=== PATIENT | male | born 2000 | race Caucasian/White ===

== ENCOUNTER 2020-07-10 08:56 | Emergency (ER) | payer OTHER ==
[~2020-07-10] VITALS: Ht 165.1 cm; Wt 53.6 kg
[2020-07-10 09:05] VITALS: BP 119/67
[2020-07-10 09:44] LABS: BASOPHILS % (AUTO) 0.8 % (0.0-2.0); EOSINOPHILS % (AUTO) 1.4 % (1.0-6.0); HEMATOCRIT 44.1 % (41-53); HEMOGLOBIN 15.2 g/dL (13.5-17.5); LYMPHOCYTES # (AUTO) 1.2 K/uL (1.0-4.8); MEAN CORPUSCULAR HEMOGLOBIN 28.9 pg (26.0-34.0); MEAN CORPUSCULAR HGB CONC 34.5 G/dL (31.0-37.0); MEAN CORPUSCULAR VOLUME 84 fL (80-100); MONOCYTES # (AUTO) 0.5 K/uL (0.1-1.0); MONOCYTES % (AUTO) 8.3 % (2.0-9.0); NEUTROPHILS # (AUTO) 3.8 K/uL (1.8-7.7); NEUTROPHILS % (AUTO) 68.5 % (40.0-70.0); PLATELET COUNT (AUTO) 317 K/uL (150-450); RED BLOOD CELL COUNT(AUTO) 5.27 MIL/uL (4.50-5.90); RED CELL DISTRIBUTION WIDTH 15.5 % (11.5-14.5)
[2020-07-10 09:51] LABS: ANION GAP 7 mmol/L (8-16); CALCIUM, TOTAL 9.3 mg/dL (8.8-10.5); CARBON DIOXIDE 29 mmol/L (22-29); CHLORIDE 101 mmol/L (98-107); CREATININE 0.91 mg/dL (0.60-1.30); GLOMERULAR FILTR. RATE CALC > 60 mL/min (>60); GLUCOSE,RANDOM 117 mg/dL (70-110); POTASSIUM 3.5 mmol/L (3.5-5.1); SODIUM SERUM 137 mmol/L (136-145); UREA NITROGEN, BLOOD 13 mg/dL (7-18)
[2020-07-10 09:59] LABS: ALANINE AMINOTRANSFERASE 28 U/L (12-78); ALBUMIN 4.9 g/dL (3.4-5.0); ALKALINE PHOSPHATASE 58 U/L (46-116); ASPARTATE AMINOTRANSFERASE 14 U/L (15-37); BILIRUBIN,TOTAL 0.4 mg/dL (0.1-1.0); TOTAL PROTEIN, SERUM 8.9 g/dL (6.4-8.2)
[2020-07-10 10:05] LABS: AMPHET/METH SCREEN,URINE NEGATIVE (NEGATIVE); BARBITURATE SCREEN, URINE NEGATIVE (NEGATIVE); BENZODIAZEPINES SCREEN,URINE NEGATIVE (NEGATIVE); CANNABINOID SCREEN,URINE NEGATIVE (NEGATIVE); COCAINE SCREEN,URINE NEGATIVE (NEGATIVE); METHADONE SCREEN, URINE NEGATIVE (NEGATIVE); OPIATE SCREEN,URINE NEGATIVE (NEGATIVE); PHENCYCLIDINE SCREEN,URINE NEGATIVE (NEGATIVE)
== END 2020-07-10 11:30 | disposition home or self-care (01) ==
LOC: EMS 09:00
DX: F41.9 Anxiety disorder, unspecified (principal)
CPT/HCPCS: 36415; 70450; 80053; 80307; 85025; 99284; G0480

== ENCOUNTER 2020-07-10 18:35 | Inpatient (IN) | payer MEDICAID ==
[~2020-07-10] VITALS: Ht 167.6 cm; Wt 56.1 kg
[2020-07-10] MEDS ORDERED: LORazepam 2 MG TABLET PO PRN (20:45)
[2020-07-10] MEDS ORDERED: ZOLPIDEM TARTRATE 10 MG TABLET PO PRN (20:45)
[2020-07-10] MEDS ORDERED: HALOPERIDOL 5 MG TABLET PO PRN (20:45)
[2020-07-10] MEDS ORDERED: INFLUENZA VIRUS VACCINE QVS 2020-21 (6MO+)/PF 60 MCG/0.5 ML SYRINGE IM ONE (21:00)
[2020-07-11 01:30] VITALS: BP 123/80
[2020-07-11] MEDS ORDERED: PETROLATUM,WHITE 28 GM JELLY TP PRN (07:15)
[2020-07-11] MEDS ORDERED: DOCUSATE SODIUM 100 MG CAPSULE PO PRN (07:15)
[2020-07-11] MEDS ORDERED: MAG HYDROX/AL HYDROX/SIMETH ES 30 ML SUSPENSION UDCUP PO PRN (07:15)
[2020-07-11] MEDS ORDERED: MAGNESIUM HYDROXIDE SUSPENSION 30 ML UDCUP PO PRN (07:15)
[2020-07-11] MEDS ORDERED: IBUPROFEN 400 MG TABLET PO PRN (07:15)
[2020-07-11] MEDS ORDERED: CloNIDine HCL 0.1 MG TABLET PO PRN (07:15)
[2020-07-11] MEDS ORDERED: GuaiFENesin/D-METHORPHAN [SUGAR-FREE] 200-20MG/10 ML SYRUP UDCUP PO PRN (07:15)
[2020-07-11] MEDS ORDERED: ONDANSETRON HCL 4 MG TABLET PO PRN (07:15)
[2020-07-11] MEDS ORDERED: ALBUTEROL SULFATE HFA 90 MCG/PUFF 8 GM INHALER IH PRN (07:15)
[2020-07-11] MEDS ORDERED: ACETAMINOPHEN 325 MG TABLET PO PRN (07:15)
[2020-07-11] MEDS ORDERED: LOPERAMIDE HCL 2 MG CAPSULE PO PRN (07:15)
[2020-07-11] MEDS ORDERED: NICOTINE 14 MG/24 HOUR PATCH TD PRN (07:15)
[2020-07-11 08:01] LABS: BASOPHILS % (AUTO) 0.4 % (0.0-2.0); EOSINOPHILS % (AUTO) 2.6 % (1.0-6.0); HEMATOCRIT 40.8 % (41-53); HEMOGLOBIN 13.8 g/dL (13.5-17.5); LYMPHOCYTES # (AUTO) 1.9 K/uL (1.0-4.8); LYMPHOCYTES % (AUTO) 37.4 % (22.0-44.0); MEAN CORPUSCULAR HEMOGLOBIN 28.2 pg (26.0-34.0); MEAN CORPUSCULAR HGB CONC 33.9 G/dL (31.0-37.0); MEAN CORPUSCULAR VOLUME 83 fL (80-100); MONOCYTES # (AUTO) 0.6 K/uL (0.1-1.0); MONOCYTES % (AUTO) 11.1 % (2.0-9.0); NEUTROPHILS # (AUTO) 2.5 K/uL (1.8-7.7); NEUTROPHILS % (AUTO) 48.5 % (40.0-70.0); PLATELET COUNT (AUTO) 284 K/uL (150-450); RED BLOOD CELL COUNT(AUTO) 4.91 MIL/uL (4.50-5.90); RED CELL DISTRIBUTION WIDTH 15.8 % (11.5-14.5)
[2020-07-11 08:27] LABS: ALANINE AMINOTRANSFERASE 24 U/L (12-78); ALBUMIN 4.2 g/dL (3.4-5.0); ALKALINE PHOSPHATASE 48 U/L (46-116); ANION GAP 10 mmol/L (8-16); ASPARTATE AMINOTRANSFERASE 8 U/L (15-37); BILIRUBIN,TOTAL 0.5 mg/dL (0.1-1.0); CALCIUM, TOTAL 9.5 mg/dL (8.8-10.5); CARBON DIOXIDE 26 mmol/L (22-29); CHLORIDE 103 mmol/L (98-107); CHOL/HDL RATIO 2.5 (4.2-7.3); CHOLESTEROL 129 mg/dL (131-200); CREATININE 0.92 mg/dL (0.60-1.30); FREE T4 (FREE THYROXINE) 0.93 ng/dL (0.76-1.46); GLOMERULAR FILTR. RATE CALC > 60 mL/min (>60); GLUCOSE,RANDOM 98 mg/dL (70-110); HDL CHOLESTEROL 51 mg/dL (40-60); LDL CHOL (CALC.) 68 mg/dL (0-130); POTASSIUM 3.8 mmol/L (3.5-5.1); SODIUM SERUM 139 mmol/L (136-145); THYROID STIMULATING HORMONE 3.92 uIU/mL (0.36-3.74); TOTAL PROTEIN, SERUM 7.7 g/dL (6.4-8.2); TRIGLYCERIDES 49 mg/dL (15-150); UREA NITROGEN, BLOOD 15 mg/dL (7-18)
[2020-07-11 09:00] VITALS: BP 109/62
[2020-07-11 13:15] LABS: GLUCOMETER DEV NAME(LOC) BV2S.; GLUCOSE,POINT OF CARE 92 MG/DL (70-110)
[2020-07-11 14:15] LABS: GLUCOMETER DEV NAME(LOC) BV2S.; GLUCOSE,POINT OF CARE 126 MG/DL (70-110)
[2020-07-11 16:29] VITALS: BP 116/70
[2020-07-11] MEDS: OLANZapine 5 MG TABLET PO SCH (17:03)
[2020-07-12 05:31] VITALS: BP 105/67
[2020-07-12 07:22] LABS: GLUCOMETER DEV NAME(LOC) BV2S.; GLUCOSE,POINT OF CARE 85 MG/DL (70-110)
[2020-07-12] MEDS: OLANZapine 5 MG TABLET PO SCH ×2 (08:14→16:08)
[2020-07-12 08:51] VITALS: BP 115/70
[2020-07-12 11:32] LABS: GLUCOMETER DEV NAME(LOC) BV2S.; GLUCOSE,POINT OF CARE 87 MG/DL (70-110)
[2020-07-12 16:11] VITALS: BP 117/65
[2020-07-12 16:50] LABS: GLUCOMETER DEV NAME(LOC) BV2S.; GLUCOSE,POINT OF CARE 114 MG/DL (70-110)
[2020-07-12 21:08] LABS: GLUCOMETER DEV NAME(LOC) BV2S.; GLUCOSE,POINT OF CARE 105 MG/DL (70-110)
[2020-07-13 06:03] VITALS: BP 120/80
[2020-07-13 06:14] VITALS: BP 109/60
[2020-07-13] MEDS: OLANZapine 5 MG TABLET PO SCH ×2 (08:41→16:26)
[2020-07-13 08:42] VITALS: BP 125/75
[2020-07-13 11:54] LABS: GLUCOMETER DEV NAME(LOC) BV2S.; GLUCOSE,POINT OF CARE 91 MG/DL (70-110)
[2020-07-13 16:17] VITALS: BP 144/66
[2020-07-13 17:10] LABS: GLUCOMETER DEV NAME(LOC) BV2S.; GLUCOSE,POINT OF CARE 76 MG/DL (70-110)
[2020-07-13 20:43] LABS: GLUCOMETER DEV NAME(LOC) BV2S.; GLUCOSE,POINT OF CARE 85 MG/DL (70-110)
[2020-07-14 06:20] LABS: GLUCOMETER DEV NAME(LOC) BV2S.; GLUCOSE,POINT OF CARE 87 MG/DL (70-110)
[2020-07-14 06:43] VITALS: BP 111/60
[2020-07-14 08:36] VITALS: BP 117/72
[2020-07-14] MEDS: OLANZapine 5 MG TABLET PO SCH ×2 (09:55→16:46)
[2020-07-14 17:01] VITALS: BP 109/62
[2020-07-15 00:23] VITALS: BP 104/50
[2020-07-15] MEDS: OLANZapine 5 MG TABLET PO SCH ×2 (08:13→16:05)
[2020-07-15 08:24] VITALS: BP 125/63
[2020-07-15 16:12] VITALS: BP 129/87
[2020-07-16 00:36] VITALS: BP 105/52
[2020-07-16 08:41] VITALS: BP 106/64
[2020-07-16] MEDS: OLANZapine 5 MG TABLET PO SCH (08:47)
[2020-07-16] MEDS ORDERED: OLAN5TAB2 PO (11:39)
== END 2020-07-16 14:00 | disposition home or self-care (01) | DRG 751 ==
LOC: B2S 20:45
PROVIDERS: ADMIT Psychiatry & Neurology Psychiatry; ATTEND Psychiatry & Neurology Psychiatry
DX: F29 Unspecified psychosis not due to a substance or known physiological condition (principal); F41.9 Anxiety disorder, unspecified; Z81.8 Family history of other mental and behavioral disorders; F19.10 Other psychoactive substance abuse, uncomplicated; F10.10 Alcohol abuse, uncomplicated; Y90.9 Presence of alcohol in blood, level not specified; R10.13 Epigastric pain; Z28.21 Immunization not carried out because of patient refusal
CPT/HCPCS: 83036; 84439; 84443

== ENCOUNTER 2020-07-10 21:34 | Emergency (ER) | payer MEDICAID, OTHER ==
[~2020-07-10] VITALS: Ht 167.6 cm; Wt 61.4 kg
[2020-07-10 22:37] LABS: COVID AG,FIA SOURCE NASOPHARYNGEAL
[2020-07-10 23:58] VITALS: BP 148/80
== END 2020-07-11 01:05 | disposition home or self-care (01) ==
LOC: EMS 21:35
DX: F41.9 Anxiety disorder, unspecified (principal); Z20.828 Contact with and (suspected) exposure to other viral communicable diseases
CPT/HCPCS: 87426

== ENCOUNTER 2021-06-24 10:12 | Inpatient (IN) | payer MEDICAID, OTHER ==
[~2021-06-24] VITALS: Ht 172.7 cm; Wt 65.8 kg
[~2021-06-24 10:12] MED LIST: OLAN5TAB52 PO
[2021-06-24 11:24] LABS: BASOPHILS % (AUTO) 0.8 % (0.0-2.0); EOSINOPHILS % (AUTO) 1.4 % (1.0-6.0); HEMATOCRIT 41.4 % (41-53); HEMOGLOBIN 13.9 g/dL (13.5-17.5); LYMPHOCYTES # (AUTO) 1.9 K/uL (1.0-4.8); LYMPHOCYTES % (AUTO) 23.8 % (22.0-44.0); MEAN CORPUSCULAR HEMOGLOBIN 27.8 pg (26.0-34.0); MEAN CORPUSCULAR HGB CONC 33.7 G/dL (31.0-37.0); MEAN CORPUSCULAR VOLUME 83 fL (80-100); MONOCYTES # (AUTO) 1.3 K/uL (0.1-1.0); MONOCYTES % (AUTO) 15.6 % (2.0-9.0); NEUTROPHILS # (AUTO) 4.7 K/uL (1.8-7.7); NEUTROPHILS % (AUTO) 58.4 % (40.0-70.0); PLATELET COUNT (AUTO) 397 K/uL (150-450); RED BLOOD CELL COUNT(AUTO) 5.01 MIL/uL (4.50-5.90); RED CELL DISTRIBUTION WIDTH 13.8 % (11.5-14.5)
[2021-06-24 11:26] LABS: COVID AG,FIA SOURCE NASOPHARYNGEAL
[2021-06-24 11:37] LABS: ANION GAP 12 mmol/L (8-16); CALCIUM, TOTAL 9.2 mg/dL (8.8-10.5); CARBON DIOXIDE 26 mmol/L (22-29); CHLORIDE 102 mmol/L (98-107); CREATININE 0.81 mg/dL (0.60-1.30); GLOMERULAR FILTR. RATE CALC > 60 mL/min (>60); GLUCOSE,RANDOM 103 mg/dL (70-110); POTASSIUM 4.1 mmol/L (3.5-5.1); SODIUM SERUM 140 mmol/L (136-145); UREA NITROGEN, BLOOD 21 mg/dL (7-18)
[2021-06-24 11:42] LABS: ALANINE AMINOTRANSFERASE 100 U/L (12-78); ALBUMIN 4.4 g/dL (3.4-5.0); ALKALINE PHOSPHATASE 74 U/L (46-116); ASPARTATE AMINOTRANSFERASE 38 U/L (15-37); BILIRUBIN,TOTAL 0.3 mg/dL (0.1-1.0); TOTAL PROTEIN, SERUM 8.6 g/dL (6.4-8.2)
[2021-06-24] MEDS: OLANZapine 5 MG RAPDIS TABLET PO ONE ×2 (13:10→13:13)
[2021-06-24] MEDS ORDERED: HALOPERIDOL 5 MG TABLET PO PRN (14:45)
[2021-06-24] MEDS ORDERED: ZOLPIDEM TARTRATE 10 MG TABLET PO PRN (14:45)
[2021-06-24] MEDS ORDERED: LORazepam 2 MG TABLET PO PRN (14:45)
[2021-06-24 17:08] VITALS: BP 130/78
[2021-06-25] MEDS ORDERED: ALBUTEROL SULFATE HFA 90 MCG/PUFF 8 GM INHALER IH PRN (08:45)
[2021-06-25] MEDS ORDERED: ONDANSETRON HCL 4 MG TABLET PO PRN (08:45)
[2021-06-25] MEDS ORDERED: MAGNESIUM HYDROXIDE SUSPENSION 30 ML UDCUP PO PRN (08:45)
[2021-06-25] MEDS ORDERED: IBUPROFEN 600 MG TABLET PO PRN (08:45)
[2021-06-25] MEDS ORDERED: MAG HYDROX/AL HYDROX/SIMETH ES 30 ML SUSPENSION UDCUP PO PRN (08:45)
[2021-06-25] MEDS ORDERED: BENZOCAINE/MENTHOL LOZENGE PO PRN (08:45)
[2021-06-25] MEDS ORDERED: DOCUSATE SODIUM 100 MG CAPSULE PO PRN (08:45)
[2021-06-25] MEDS ORDERED: OMEPRAZOLE 20 MG CAPSULE PO PRN (08:45)
[2021-06-25] MEDS ORDERED: ACETAMINOPHEN 325 MG TABLET PO PRN (08:45)
[2021-06-25] MEDS ORDERED: LOPERAMIDE HCL 2 MG CAPSULE PO PRN (08:45)
[2021-06-25] MEDS ORDERED: CloNIDine HCL 0.1 MG TABLET PO PRN (08:45)
[2021-06-25] MEDS ORDERED: BACITRACIN 28 GM OINTMENT TP PRN (08:45)
[2021-06-25] MEDS ORDERED: PETROLATUM,WHITE 28 GM JELLY TP PRN (08:45)
[2021-06-25 16:30] VITALS: BP 116/65
[2021-06-26 07:36] LABS: ALANINE AMINOTRANSFERASE 60 U/L (12-78); ALBUMIN 3.7 g/dL (3.4-5.0); ALKALINE PHOSPHATASE 60 U/L (46-116); ANION GAP 9 mmol/L (8-16); ASPARTATE AMINOTRANSFERASE 18 U/L (15-37); BILIRUBIN,TOTAL 0.3 mg/dL (0.1-1.0); CALCIUM, TOTAL 8.7 mg/dL (8.8-10.5); CARBON DIOXIDE 28 mmol/L (22-29); CHLORIDE 105 mmol/L (98-107); CHOL/HDL RATIO 3.1 (4.2-7.3); CHOLESTEROL 124 mg/dL (131-200); CREATININE 0.86 mg/dL (0.60-1.30); GLOMERULAR FILTR. RATE CALC > 60 mL/min (>60); GLUCOSE,RANDOM 89 mg/dL (70-110); HDL CHOLESTEROL 40 mg/dL (40-60); LDL CHOL (CALC.) 76 mg/dL (0-130); POTASSIUM 4.3 mmol/L (3.5-5.1); SODIUM SERUM 142 mmol/L (136-145); TOTAL PROTEIN, SERUM 7.5 g/dL (6.4-8.2); TRIGLYCERIDES 40 mg/dL (15-150); UREA NITROGEN, BLOOD 19 mg/dL (7-18)
[2021-06-26 08:00] VITALS: BP 144/80
[2021-06-26 16:06] VITALS: BP 109/61
[2021-06-26] MEDS: OLANZapine 7.5 MG TABLET PO SCH (20:50)
[2021-06-27 04:06] LABS: HEPATITIS C AB (EIA) <0.1 s/co ratio (0.0-0.9)
[2021-06-27 09:23] VITALS: BP 145/66
[2021-06-27 16:50] VITALS: BP 127/69
[2021-06-27] MEDS: OLANZapine 7.5 MG TABLET PO SCH ×2 (20:10→20:42)
[2021-06-28 09:08] VITALS: BP 139/71
[2021-06-28 16:00] VITALS: BP 112/66
[2021-06-28] MEDS: OLANZapine 7.5 MG TABLET PO SCH (20:30)
[2021-06-29 08:56] VITALS: BP 126/77
[2021-06-29 16:05] VITALS: BP 111/69
[2021-06-29] MEDS: OLANZapine 7.5 MG TABLET PO SCH (20:37)
[2021-06-30 11:03] VITALS: BP 113/59
[2021-06-30 12:27] LABS: COVID AG,FIA SOURCE NASOPHARYNGEAL
[2021-06-30 17:08] VITALS: BP 109/65
[2021-06-30] MEDS: OLANZapine 7.5 MG TABLET PO SCH (21:00)
[2021-07-01 16:31] VITALS: BP 107/56
[2021-07-01] MEDS: OLANZapine 7.5 MG TABLET PO SCH (20:15)
[2021-07-02 08:00] VITALS: BP 127/62
[2021-07-02 16:16] VITALS: BP 127/77
[2021-07-02] MEDS: OLANZapine 7.5 MG TABLET PO SCH (20:28)
[2021-07-03 08:00] VITALS: BP 142/72
[2021-07-03] MEDS ORDERED: HALOPERIDOL LACTATE 5 MG/ML VIAL IM PRN (11:30)
[2021-07-03 16:30] VITALS: BP 113/61
[2021-07-03] MEDS: OLANZapine 7.5 MG TABLET PO SCH (21:00)
[2021-07-04 08:00] VITALS: BP 138/88
[2021-07-04 17:04] VITALS: BP 101/65
[2021-07-04 17:05] VITALS: BP 101/55
[2021-07-04] MEDS: OLANZapine 7.5 MG TABLET PO SCH (20:48)
[2021-07-05 08:00] VITALS: BP 115/72
[2021-07-05 16:53] VITALS: BP 124/61
[2021-07-05] MEDS: OLANZapine 7.5 MG TABLET PO SCH (20:25)
[2021-07-06 16:08] VITALS: BP 125/67
[2021-07-06] MEDS: OLANZapine 7.5 MG TABLET PO SCH (20:58)
[2021-07-07 08:00] VITALS: BP 140/80
[2021-07-07 09:15] LABS: COVID AG,FIA SOURCE NASOPHARYNGEAL
[2021-07-07 16:28] VITALS: BP 130/72
[2021-07-07] MEDS: OLANZapine 7.5 MG TABLET PO SCH (20:12)
[2021-07-08 09:01] VITALS: BP 140/74
[2021-07-08 16:42] VITALS: BP 115/73
[2021-07-08] MEDS: OLANZapine 7.5 MG TABLET PO SCH (20:40)
[2021-07-09 09:03] VITALS: BP 156/87
[2021-07-09 17:20] VITALS: BP 115/68
[2021-07-09] MEDS: OLANZapine 7.5 MG TABLET PO SCH (20:58)
[2021-07-10 04:03] VITALS: BP 107/60
[2021-07-10 08:00] VITALS: BP 139/79
[2021-07-10 16:22] VITALS: BP 103/58
[2021-07-10] MEDS: OLANZapine 10 MG TABLET PO SCH (20:05)
[2021-07-11 08:00] VITALS: BP 156/100
[2021-07-11 17:00] VITALS: BP 115/77
[2021-07-11] MEDS: OLANZapine 10 MG TABLET PO SCH (20:23)
[2021-07-12 08:00] VITALS: BP 119/70
[2021-07-12] MEDS: BENZTROPINE MESYLATE 1 MG TABLET PO SCH (16:06)
[2021-07-12 16:16] VITALS: BP 118/76
[2021-07-12] MEDS: OLANZapine 10 MG TABLET PO SCH (20:20)
[2021-07-12] MEDS: HALOPERIDOL 5 MG TABLET PO SCH (20:21)
[2021-07-13] MEDS: BENZTROPINE MESYLATE 1 MG TABLET PO SCH ×2 (09:11→16:06)
[2021-07-13 10:32] VITALS: BP 117/68
[2021-07-13 16:43] VITALS: BP 110/66
[2021-07-13] MEDS: OLANZapine 10 MG TABLET PO SCH (20:26)
[2021-07-13] MEDS: HALOPERIDOL 5 MG TABLET PO SCH (20:26)
[2021-07-14] MEDS: BENZTROPINE MESYLATE 1 MG TABLET PO SCH ×2 (08:43→16:10)
[2021-07-14 16:38] VITALS: BP 115/85
[2021-07-14] MEDS: OLANZapine 10 MG TABLET PO SCH (20:16)
[2021-07-14] MEDS: HALOPERIDOL 5 MG TABLET PO SCH (20:17)
[2021-07-15 08:00] VITALS: BP 126/86
[2021-07-15] MEDS: BENZTROPINE MESYLATE 1 MG TABLET PO SCH ×2 (09:20→16:15)
[2021-07-15 16:00] VITALS: BP 112/73
[2021-07-15] MEDS: OLANZapine 10 MG TABLET PO SCH (20:06)
[2021-07-15] MEDS: HALOPERIDOL 10 MG TABLET PO SCH (20:06)
[2021-07-16 04:25] VITALS: BP 110/65
[2021-07-16] MEDS: BENZTROPINE MESYLATE 1 MG TABLET PO SCH ×2 (09:05→16:29)
[2021-07-16 16:00] VITALS: BP 126/84
[2021-07-16] MEDS: OLANZapine 10 MG TABLET PO SCH (20:18)
[2021-07-16] MEDS: HALOPERIDOL 10 MG TABLET PO SCH (20:18)
[2021-07-17 08:00] VITALS: BP 124/85
[2021-07-17] MEDS: BENZTROPINE MESYLATE 1 MG TABLET PO SCH ×2 (09:05→16:38)
[2021-07-17 16:43] VITALS: BP 128/73
[2021-07-17 16:45] VITALS: BP 128/73
[2021-07-17] MEDS: OLANZapine 10 MG TABLET PO SCH (20:45)
[2021-07-17] MEDS: HALOPERIDOL 10 MG TABLET PO SCH (20:45)
[2021-07-18] MEDS: BENZTROPINE MESYLATE 1 MG TABLET PO SCH ×2 (08:39→17:19)
[2021-07-18 09:41] VITALS: BP 130/69
[2021-07-18 11:24] LABS: COVID AG,FIA SOURCE NASAL SWAB
[2021-07-18 16:21] VITALS: BP 131/65
[2021-07-18] MEDS: HALOPERIDOL 10 MG TABLET PO SCH (20:57)
[2021-07-18] MEDS: OLANZapine 10 MG TABLET PO SCH (20:57)
[2021-07-19 08:20] VITALS: BP 135/69
[2021-07-19] MEDS: BENZTROPINE MESYLATE 1 MG TABLET PO SCH ×2 (09:40→17:22)
[2021-07-19 16:15] VITALS: BP 136/78
[2021-07-19] MEDS: OLANZapine 10 MG TABLET PO SCH (21:29)
[2021-07-19] MEDS: HALOPERIDOL 10 MG TABLET PO SCH (21:29)
[2021-07-20 08:37] VITALS: BP 132/78
[2021-07-20] MEDS: BENZTROPINE MESYLATE 1 MG TABLET PO SCH ×2 (08:54→16:15)
[2021-07-20 16:00] VITALS: BP 114/68
[2021-07-20 16:31] VITALS: BP 114/68
[2021-07-20] MEDS: HALOPERIDOL 10 MG TABLET PO SCH (20:38)
[2021-07-20] MEDS: OLANZapine 10 MG TABLET PO SCH (20:38)
[2021-07-21] MEDS: BENZTROPINE MESYLATE 1 MG TABLET PO SCH ×2 (08:42→16:09)
[2021-07-21 10:04] VITALS: BP 122/74
[2021-07-21 16:00] VITALS: BP 140/94
[2021-07-21] MEDS: OLANZapine 10 MG TABLET PO SCH (20:15)
[2021-07-21] MEDS: HALOPERIDOL 10 MG TABLET PO SCH (20:15)
[2021-07-22 08:00] VITALS: BP 108/60
[2021-07-22] MEDS: BENZTROPINE MESYLATE 1 MG TABLET PO SCH ×2 (08:35→16:26)
[2021-07-22 16:58] VITALS: BP 112/65
[2021-07-22] MEDS: HALOPERIDOL 10 MG TABLET PO SCH (20:10)
[2021-07-22] MEDS: OLANZapine 10 MG TABLET PO SCH (20:11)
[2021-07-23 09:48] VITALS: BP 141/93
[2021-07-23] MEDS: BENZTROPINE MESYLATE 1 MG TABLET PO SCH ×2 (10:28→16:30)
[2021-07-23] MEDS: OLANZapine 10 MG TABLET PO SCH ×2 (19:55→21:06)
[2021-07-23] MEDS: HALOPERIDOL 10 MG TABLET PO SCH ×2 (19:59→21:06)
[2021-07-24 08:00] VITALS: BP 115/73
[2021-07-24] MEDS: BENZTROPINE MESYLATE 1 MG TABLET PO SCH ×2 (09:52→16:24)
[2021-07-24 17:59] VITALS: BP 113/66
[2021-07-24] MEDS: HALOPERIDOL 10 MG TABLET PO SCH (20:15)
[2021-07-24] MEDS: OLANZapine 10 MG TABLET PO SCH (20:15)
[2021-07-25] MEDS: BENZTROPINE MESYLATE 1 MG TABLET PO SCH ×2 (08:19→16:11)
[2021-07-25 10:22] VITALS: BP 139/84
[2021-07-25 16:15] VITALS: BP 129/70
[2021-07-25] MEDS: OLANZapine 10 MG TABLET PO SCH (20:06)
[2021-07-25] MEDS: HALOPERIDOL 10 MG TABLET PO SCH (20:06)
[2021-07-26 08:00] VITALS: BP 130/79
[2021-07-26] MEDS: BENZTROPINE MESYLATE 1 MG TABLET PO SCH ×2 (09:10→16:08)
[2021-07-26 09:23] LABS: COVID AG,FIA SOURCE NASOPHARYNGEAL
[2021-07-26 11:10] VITALS: BP 130/79
[2021-07-26 16:11] VITALS: BP 109/72
[2021-07-26] MEDS: OLANZapine 10 MG TABLET PO SCH (20:02)
[2021-07-26] MEDS: HALOPERIDOL 10 MG TABLET PO SCH (20:03)
[2021-07-27] MEDS: BENZTROPINE MESYLATE 1 MG TABLET PO SCH ×2 (08:39→16:25)
[2021-07-27 08:50] VITALS: BP 135/98
[2021-07-27 16:00] VITALS: BP 127/65
[2021-07-27] MEDS: OLANZapine 10 MG TABLET PO SCH (20:28)
[2021-07-27] MEDS: HALOPERIDOL 10 MG TABLET PO SCH (20:28)
[2021-07-28] MEDS: BENZTROPINE MESYLATE 1 MG TABLET PO SCH ×2 (09:33→16:21)
[2021-07-28 16:57] VITALS: BP 105/69
[2021-07-28] MEDS: OLANZapine 10 MG TABLET PO SCH (20:27)
[2021-07-28] MEDS: HALOPERIDOL 10 MG TABLET PO SCH (20:27)
[2021-07-29] MEDS: BENZTROPINE MESYLATE 1 MG TABLET PO SCH ×2 (08:24→16:02)
[2021-07-29 09:30] VITALS: BP 142/86
[2021-07-29 16:00] VITALS: BP 134/83
[2021-07-29] MEDS: OLANZapine 10 MG TABLET PO SCH (20:05)
[2021-07-29] MEDS: HALOPERIDOL 10 MG TABLET PO SCH (20:05)
[2021-07-30 08:00] VITALS: BP 139/68
[2021-07-30] MEDS: BENZTROPINE MESYLATE 1 MG TABLET PO SCH ×2 (08:43→16:04)
[2021-07-30 16:45] VITALS: BP 147/88
[2021-07-30] MEDS: HALOPERIDOL 10 MG TABLET PO SCH (20:00)
[2021-07-30] MEDS: OLANZapine 10 MG TABLET PO SCH (20:00)
[2021-07-31 08:00] VITALS: BP 119/68
[2021-07-31] MEDS: BENZTROPINE MESYLATE 1 MG TABLET PO SCH ×2 (08:03→16:24)
[2021-07-31 17:00] VITALS: BP 129/76
[2021-07-31] MEDS: HALOPERIDOL 10 MG TABLET PO SCH (20:33)
[2021-07-31] MEDS: OLANZapine 10 MG TABLET PO SCH (20:33)
[2021-08-01] MEDS: BENZTROPINE MESYLATE 1 MG TABLET PO SCH ×2 (08:38→16:19)
[2021-08-01 09:22] VITALS: BP 121/65
[2021-08-01 16:00] VITALS: BP 120/65
[2021-08-01] MEDS: HALOPERIDOL 10 MG TABLET PO SCH (20:08)
[2021-08-01] MEDS: OLANZapine 10 MG TABLET PO SCH (20:08)
[2021-08-02 08:52] LABS: COVID AG,FIA SOURCE NASOPHARYNGEAL
[2021-08-02] MEDS: BENZTROPINE MESYLATE 1 MG TABLET PO SCH ×2 (08:55→16:50)
[2021-08-02 10:07] VITALS: BP 127/78
[2021-08-02 16:18] VITALS: BP 125/61
[2021-08-02] MEDS: HALOPERIDOL 10 MG TABLET PO SCH (20:26)
[2021-08-02] MEDS: OLANZapine 10 MG TABLET PO SCH (20:26)
[2021-08-03 08:00] VITALS: BP 146/98
[2021-08-03] MEDS: BENZTROPINE MESYLATE 1 MG TABLET PO SCH ×2 (08:19→16:41)
[2021-08-03 16:00] VITALS: BP 144/90
[2021-08-03] MEDS: OLANZapine 10 MG TABLET PO SCH (20:22)
[2021-08-03] MEDS: HALOPERIDOL 10 MG TABLET PO SCH (20:23)
[2021-08-04 08:00] VITALS: BP 150/76
[2021-08-04] MEDS: BENZTROPINE MESYLATE 1 MG TABLET PO SCH ×2 (09:43→16:12)
[2021-08-04 16:00] VITALS: BP 142/80
[2021-08-04] MEDS: OLANZapine 10 MG TABLET PO SCH (20:06)
[2021-08-04] MEDS: HALOPERIDOL 10 MG TABLET PO SCH (20:06)
[2021-08-05] MEDS: BENZTROPINE MESYLATE 1 MG TABLET PO SCH ×2 (08:03→16:08)
[2021-08-05 10:14] VITALS: BP 126/86
[2021-08-05 16:33] VITALS: BP 110/72
[2021-08-05] MEDS: OLANZapine 10 MG TABLET PO SCH (20:44)
[2021-08-05] MEDS: HALOPERIDOL 10 MG TABLET PO SCH (20:45)
[2021-08-06 08:00] VITALS: BP 118/71
[2021-08-06] MEDS: BENZTROPINE MESYLATE 1 MG TABLET PO SCH ×2 (08:34→16:17)
[2021-08-06 16:15] VITALS: BP 114/79
[2021-08-06] MEDS: OLANZapine 10 MG TABLET PO SCH (20:16)
[2021-08-06] MEDS: HALOPERIDOL 10 MG TABLET PO SCH (20:16)
[2021-08-07 08:00] VITALS: BP 135/80
[2021-08-07] MEDS: BENZTROPINE MESYLATE 1 MG TABLET PO SCH ×2 (09:30→16:13)
[2021-08-07 16:12] VITALS: BP 111/71
[2021-08-07] MEDS: OLANZapine 10 MG TABLET PO SCH (20:10)
[2021-08-07] MEDS: HALOPERIDOL 10 MG TABLET PO SCH (20:10)
[2021-08-08] MEDS: BENZTROPINE MESYLATE 1 MG TABLET PO SCH ×2 (08:13→16:17)
[2021-08-08 09:30] VITALS: BP 119/72
[2021-08-08 16:21] VITALS: BP 121/73
[2021-08-08] MEDS: HALOPERIDOL 10 MG TABLET PO SCH (20:14)
[2021-08-08] MEDS: OLANZapine 10 MG TABLET PO SCH (20:14)
[2021-08-09] MEDS: BENZTROPINE MESYLATE 1 MG TABLET PO SCH ×2 (08:11→16:28)
[2021-08-09 09:07] VITALS: BP 120/69
[2021-08-09 10:20] LABS: COVID AG,FIA SOURCE NASOPHARYNGEAL
[2021-08-09 16:10] VITALS: BP 121/73
[2021-08-09] MEDS: OLANZapine 10 MG TABLET PO SCH (20:26)
[2021-08-09] MEDS: HALOPERIDOL 10 MG TABLET PO SCH (20:26)
[2021-08-10] MEDS: BENZTROPINE MESYLATE 1 MG TABLET PO SCH (08:28)
[2021-08-10 09:31] VITALS: BP 125/78
[2021-08-10] MEDS ORDERED: OLAN10TA74 PO (10:25)
[2021-08-10] MEDS ORDERED: BENZ1TAB10 PO (10:26)
[2021-08-10] MEDS ORDERED: HALO10 PO (10:26)
== END 2021-08-10 14:05 | disposition home or self-care (01) | DRG 750 ==
LOC: EMS 10:22 → 3EI 15:54
PROVIDERS: ADMIT Psychiatry & Neurology Psychiatry; ATTEND Psychiatry & Neurology Psychiatry
DX: F25.9 Schizoaffective disorder, unspecified (principal); F12.90 Cannabis use, unspecified, uncomplicated; Z20.822 Contact with and (suspected) exposure to COVID-19; F32.A Depression, unspecified; F41.9 Anxiety disorder, unspecified; G47.00 Insomnia, unspecified; K59.00 Constipation, unspecified; Z59.00 Homelessness unspecified
CPT/HCPCS: 80053; 80061; 80074; 84443; 85025; 99285; G0480

== ENCOUNTER 2021-11-08 14:59 | Inpatient (IN) | payer MEDICAID, OTHER ==
[~2021-11-08] VITALS: Ht 172.7 cm; Wt 63.7 kg
[~2021-11-08 14:59] MED LIST changes: +BENZ1TAB96 PO; +HALO10 PO; +OLAN10TA74 PO; -OLAN5TAB52 PO
[2021-11-08 16:32] LABS: BASOPHILS % (AUTO) 0.8 % (0.0-2.0); EOSINOPHILS % (AUTO) 0.7 % (1.0-6.0); HEMOGLOBIN 13.8 g/dL (13.5-17.5); LYMPHOCYTES # (AUTO) 1.6 K/uL (1.0-4.8); LYMPHOCYTES % (AUTO) 25.9 % (22.0-44.0); MEAN CORPUSCULAR HEMOGLOBIN 25.7 pg (26.0-34.0); MEAN CORPUSCULAR VOLUME 78 fL (80-100); MONOCYTES # (AUTO) 0.5 K/uL (0.1-1.0); MONOCYTES % (AUTO) 8.8 % (2.0-9.0); NEUTROPHILS # (AUTO) 3.8 K/uL (1.8-7.7); NEUTROPHILS % (AUTO) 63.8 % (40.0-70.0); PLATELET COUNT (AUTO) 340 K/uL (150-450); RED BLOOD CELL COUNT(AUTO) 5.37 MIL/uL (4.50-5.90); RED CELL DISTRIBUTION WIDTH 18.7 % (11.5-14.5)
[2021-11-08 16:43] LABS: ANION GAP 10 mmol/L (8-16); CALCIUM, TOTAL 9.6 mg/dL (8.8-10.5); CARBON DIOXIDE 30 mmol/L (22-29); CHLORIDE 101 mmol/L (98-107); CREATININE 0.86 mg/dL (0.60-1.30); GLOMERULAR FILTR. RATE CALC > 60 mL/min (>60); GLUCOSE,RANDOM 89 mg/dL (70-110); POTASSIUM 3.6 mmol/L (3.5-5.1); SODIUM SERUM 141 mmol/L (136-145); UREA NITROGEN, BLOOD 15 mg/dL (7-18)
[2021-11-08 16:51] LABS: ALANINE AMINOTRANSFERASE 40 U/L (12-78); ALBUMIN 4.4 g/dL (3.4-5.0); ALKALINE PHOSPHATASE 80 U/L (46-116); ASPARTATE AMINOTRANSFERASE 21 U/L (15-37); BILIRUBIN,TOTAL 0.6 mg/dL (0.1-1.0); TOTAL PROTEIN, SERUM 9.1 g/dL (6.4-8.2)
[2021-11-08] MEDS ORDERED: LORazepam 2 MG TABLET PO PRN (17:15)
[2021-11-08] MEDS ORDERED: ZOLPIDEM TARTRATE 10 MG TABLET PO PRN (17:15)
[2021-11-08 17:48] LABS: COVID AG,FIA SOURCE NASOPHARYNGEAL
[2021-11-08 21:38] LABS: APPEARANCE,URINE CLEAR (CLEAR); BILIRUBIN,URINE NEGATIVE (NEGATIVE); GLUCOSE, URINE (UA) NEGATIVE (NEGATIVE); LEUKOCYTE ESTERASE ,URINE NEGATIVE (NEGATIVE); NITRATE,URINE NEGATIVE (NEGATIVE); OCCULT BLOOD,URINE NEGATIVE (NEGATIVE); PROTEIN,URINE TRACE mg/dL (NEGATIVE); SPECIFIC GRAVITIY, URINE 1.034 (1.003-1.030); UROBILINOGEN,URINE <=1.0 mg/dL (<=1.0)
[2021-11-08 21:45] LABS: AMPHET/METH SCREEN,URINE NEGATIVE (NEGATIVE); BARBITURATE SCREEN, URINE NEGATIVE (NEGATIVE); BENZODIAZEPINES SCREEN,URINE NEGATIVE (NEGATIVE); CANNABINOID SCREEN,URINE POSITIVE (NEGATIVE); COCAINE SCREEN,URINE NEGATIVE (NEGATIVE); METHADONE SCREEN, URINE NEGATIVE (NEGATIVE); OPIATE SCREEN,URINE NEGATIVE (NEGATIVE); PHENCYCLIDINE SCREEN,URINE NEGATIVE (NEGATIVE)
[2021-11-09 12:09] VITALS: BP 148/92
[2021-11-09 12:19] VITALS: BP 148/92
[2021-11-09] MEDS ORDERED: INFLUENZA VIRUS VACCINE QVS 2021-22 (6MO+)/PF 60 MCG/0.5 ML SYRINGE IM. ONE (14:45)
[2021-11-10 08:58] VITALS: BP 159/96
[2021-11-10] MEDS ORDERED: ALBUTEROL SULFATE HFA 90 MCG/PUFF 8 GM INHALER IH PRN (16:00)
[2021-11-10] MEDS ORDERED: MAGNESIUM HYDROXIDE SUSPENSION 30 ML UDCUP PO PRN (16:00)
[2021-11-10] MEDS ORDERED: DOCUSATE SODIUM 100 MG CAPSULE PO PRN (16:00)
[2021-11-10] MEDS ORDERED: OMEPRAZOLE 20 MG CAPSULE PO PRN (16:00)
[2021-11-10] MEDS ORDERED: PETROLATUM,WHITE 28 GM JELLY TP PRN (16:00)
[2021-11-10] MEDS ORDERED: IBUPROFEN 600 MG TABLET PO PRN (16:00)
[2021-11-10] MEDS ORDERED: BENZOCAINE/MENTHOL LOZENGE PO PRN (16:00)
[2021-11-10] MEDS ORDERED: ACETAMINOPHEN 325 MG TABLET PO PRN (16:00)
[2021-11-10] MEDS ORDERED: LOPERAMIDE HCL 2 MG CAPSULE PO PRN (16:00)
[2021-11-10] MEDS ORDERED: CloNIDine HCL 0.1 MG TABLET PO PRN (16:00)
[2021-11-10] MEDS ORDERED: BACITRACIN 28 GM OINTMENT TP PRN (16:00)
[2021-11-10] MEDS ORDERED: MAG HYDROX/AL HYDROX/SIMETH ES 30 ML SUSPENSION UDCUP PO PRN (16:00)
[2021-11-10] MEDS ORDERED: ONDANSETRON HCL 4 MG TABLET PO PRN (16:00)
[2021-11-10 18:15] VITALS: BP 140/85
[2021-11-11 09:02] VITALS: BP 133/72
[2021-11-11 16:24] VITALS: BP 141/87
[2021-11-11] MEDS ORDERED: HALOPERIDOL 10 MG TABLET PO SCH (21:00)
[2021-11-12 08:30] VITALS: BP 132/66
[2021-11-12 16:36] VITALS: BP 139/82
[2021-11-12] MEDS: HALOPERIDOL 5 MG TABLET PO PRN (16:59)
[2021-11-12] MEDS: HALOPERIDOL 10 MG TABLET PO SCH (20:34)
[2021-11-13 08:30] VITALS: BP 142/76
[2021-11-13 16:00] VITALS: BP 142/78
[2021-11-13] MEDS: HALOPERIDOL 10 MG TABLET PO SCH (20:12)
[2021-11-14 08:06] VITALS: BP 126/66
[2021-11-14 15:33] LABS: COVID AG,FIA SOURCE NASOPHARYNGEAL
[2021-11-14 16:53] VITALS: BP 125/69
[2021-11-14] MEDS: HALOPERIDOL 10 MG TABLET PO SCH (20:37)
[2021-11-15 08:01] VITALS: BP 144/88
[2021-11-15 16:21] VITALS: BP 128/79
[2021-11-15] MEDS: HALOPERIDOL 10 MG TABLET PO SCH (20:21)
[2021-11-16 08:30] VITALS: BP 157/88
[2021-11-16 16:18] VITALS: BP 128/69
[2021-11-16] MEDS: HALOPERIDOL 5 MG TABLET PO PRN (17:25)
[2021-11-16] MEDS: HALOPERIDOL 10 MG TABLET PO SCH (20:53)
[2021-11-17 08:06] VITALS: BP 130/70
[2021-11-17 16:39] VITALS: BP 105/66
[2021-11-17] MEDS: HALOPERIDOL 10 MG TABLET PO SCH (20:38)
[2021-11-18 08:25] VITALS: BP 128/60
[2021-11-18 16:37] VITALS: BP 114/73
[2021-11-18] MEDS: HALOPERIDOL 5 MG TABLET PO PRN (17:20)
[2021-11-18] MEDS: HALOPERIDOL 10 MG TABLET PO SCH (20:39)
[2021-11-19 08:06] VITALS: BP 119/77
[2021-11-19 16:25] VITALS: BP 110/71
[2021-11-19] MEDS: HALOPERIDOL 10 MG TABLET PO SCH (20:19)
[2021-11-20 07:12] LABS: BASOPHILS % (AUTO) 0.7 % (0.0-2.0); EOSINOPHILS % (AUTO) 2.4 % (1.0-6.0); HEMATOCRIT 40.7 % (41-53); HEMOGLOBIN 13.3 g/dL (13.5-17.5); LYMPHOCYTES # (AUTO) 1.5 K/uL (1.0-4.8); LYMPHOCYTES % (AUTO) 42.2 % (22.0-44.0); MEAN CORPUSCULAR HEMOGLOBIN 25.9 pg (26.0-34.0); MEAN CORPUSCULAR HGB CONC 32.7 G/dL (31.0-37.0); MEAN CORPUSCULAR VOLUME 79 fL (80-100); MONOCYTES # (AUTO) 0.4 K/uL (0.1-1.0); MONOCYTES % (AUTO) 11.6 % (2.0-9.0); NEUTROPHILS # (AUTO) 1.6 K/uL (1.8-7.7); NEUTROPHILS % (AUTO) 43.1 % (40.0-70.0); PLATELET COUNT (AUTO) 236 K/uL (150-450); RED BLOOD CELL COUNT(AUTO) 5.14 MIL/uL (4.50-5.90); RED CELL DISTRIBUTION WIDTH 19.6 % (11.5-14.5)
[2021-11-20 08:30] VITALS: BP 118/75
[2021-11-20 16:49] VITALS: BP 103/60
[2021-11-20] MEDS: HALOPERIDOL 10 MG TABLET PO SCH (20:54)
[2021-11-21 06:58] LABS: COVID AG,FIA SOURCE NASAL SWAB
[2021-11-21 08:00] VITALS: BP 130/84
[2021-11-21 08:49] VITALS: BP 130/84
[2021-11-21] MEDS ORDERED: CloZAPine 25 MG TABLET PO SCH (15:00)
[2021-11-21 16:39] VITALS: BP 113/79
[2021-11-21] MEDS: HALOPERIDOL 10 MG TABLET PO SCH (20:27)
[2021-11-22 08:56] VITALS: BP 124/86
[2021-11-22] MEDS ORDERED: CloZAPine 25 MG TABLET PO SCH ×2 (09:00→21:00)
[2021-11-22 16:00] VITALS: BP 108/68
[2021-11-22] MEDS: HALOPERIDOL 10 MG TABLET PO SCH (20:27)
[2021-11-23] MEDS ORDERED: CloZAPine 25 MG TABLET PO SCH ×2 (09:00→21:00)
[2021-11-23 12:03] VITALS: BP 144/79
[2021-11-23 16:13] VITALS: BP 128/75
[2021-11-23] MEDS: HALOPERIDOL 5 MG TABLET PO PRN (17:00)
[2021-11-23] MEDS: HALOPERIDOL 10 MG TABLET PO SCH (20:54)
[2021-11-24] MEDS: CloZAPine 25 MG TABLET PO SCH ×2 (08:25→20:10)
[2021-11-24 08:42] VITALS: BP 157/111
[2021-11-24 14:59] VITALS: BP 115/72
[2021-11-24 16:31] VITALS: BP 124/83
[2021-11-24] MEDS: HALOPERIDOL 10 MG TABLET PO SCH (20:10)
[2021-11-25 08:00] VITALS: BP 152/89
[2021-11-25] MEDS: CloZAPine 25 MG TABLET PO SCH ×2 (08:36→21:00)
[2021-11-25 16:17] VITALS: BP 120/72
[2021-11-25] MEDS: HALOPERIDOL 5 MG TABLET PO PRN (17:11)
[2021-11-25] MEDS: HALOPERIDOL 10 MG TABLET PO SCH (21:00)
[2021-11-26] MEDS ORDERED: CloZAPine 25 MG TABLET PO SCH (09:00)
[2021-11-26 16:00] VITALS: BP 118/78
[2021-11-26] MEDS: HALOPERIDOL 5 MG TABLET PO PRN (16:53)
[2021-11-26] MEDS: HALOPERIDOL 10 MG TABLET PO SCH (20:47)
[2021-11-26] MEDS ORDERED: CloZAPine 100 MG TABLET PO SCH (21:00)
[2021-11-27 06:18] LABS: BASOPHILS % (AUTO) 1.4 % (0.0-2.0); EOSINOPHILS % (AUTO) 2.3 % (1.0-6.0); HEMATOCRIT 42.6 % (41-53); HEMOGLOBIN 14.1 g/dL (13.5-17.5); LYMPHOCYTES # (AUTO) 1.7 K/uL (1.0-4.8); LYMPHOCYTES % (AUTO) 42.8 % (22.0-44.0); MEAN CORPUSCULAR HEMOGLOBIN 26.4 pg (26.0-34.0); MEAN CORPUSCULAR HGB CONC 33.1 G/dL (31.0-37.0); MEAN CORPUSCULAR VOLUME 80 fL (80-100); MONOCYTES # (AUTO) 0.4 K/uL (0.1-1.0); MONOCYTES % (AUTO) 10.8 % (2.0-9.0); NEUTROPHILS # (AUTO) 1.7 K/uL (1.8-7.7); NEUTROPHILS % (AUTO) 42.7 % (40.0-70.0); PLATELET COUNT (AUTO) 249 K/uL (150-450); RED BLOOD CELL COUNT(AUTO) 5.36 MIL/uL (4.50-5.90)
[2021-11-27 08:00] VITALS: BP 155/90
[2021-11-27] MEDS ORDERED: CloZAPine 25 MG TABLET PO SCH (09:00)
[2021-11-27 16:00] VITALS: BP 105/65
[2021-11-27] MEDS: HALOPERIDOL 10 MG TABLET PO SCH (20:04)
[2021-11-27] MEDS ORDERED: CloZAPine 100 MG TABLET PO SCH (21:00)
[2021-11-28 08:00] VITALS: BP 143/86
[2021-11-28] MEDS ORDERED: CloZAPine 25 MG TABLET PO SCH (09:00)
[2021-11-28 13:50] LABS: COVID AG,FIA SOURCE NASOPHARYNGEAL
[2021-11-28 16:31] VITALS: BP 111/70
[2021-11-28] MEDS: HALOPERIDOL 10 MG TABLET PO SCH (20:18)
[2021-11-28] MEDS ORDERED: CloZAPine 100 MG TABLET PO SCH (21:00)
[2021-11-29 03:01] VITALS: BP 123/76
[2021-11-29 08:02] VITALS: BP 132/89
[2021-11-29] MEDS: CloZAPine 100 MG TABLET PO SCH ×2 (08:46→20:12)
[2021-11-29 16:45] VITALS: BP 121/75
[2021-11-29] MEDS: HALOPERIDOL 10 MG TABLET PO SCH (20:12)
[2021-11-30 08:00] VITALS: BP 136/100
[2021-11-30] MEDS: CloZAPine 100 MG TABLET PO SCH ×2 (08:45→20:10)
[2021-11-30 16:57] VITALS: BP 136/78
[2021-11-30] MEDS: HALOPERIDOL 10 MG TABLET PO SCH (20:10)
[2021-12-01] MEDS ORDERED: CloZAPine 25 MG TABLET PO SCH (09:00)
[2021-12-01 10:40] VITALS: BP 131/85
[2021-12-01 16:17] VITALS: BP 119/69
[2021-12-01] MEDS: HALOPERIDOL 10 MG TABLET PO SCH (20:17)
[2021-12-01] MEDS ORDERED: CloZAPine 100 MG TABLET PO SCH (21:00)
[2021-12-02 08:10] VITALS: BP 153/95
[2021-12-02] MEDS ORDERED: CloZAPine 25 MG TABLET PO SCH (09:00)
[2021-12-02] MEDS ORDERED: TUBERCULIN, PURIFIED PROTEIN DERIVATIVE 5 TU/0.1 ML SYRINGE ID ONE (11:30)
[2021-12-02 16:56] VITALS: BP 128/65
[2021-12-02] MEDS: HALOPERIDOL 10 MG TABLET PO SCH (20:09)
[2021-12-02] MEDS ORDERED: CloZAPine 100 MG TABLET PO SCH (21:00)
[2021-12-03] MEDS: CloZAPine 100 MG TABLET PO SCH ×2 (08:38→20:06)
[2021-12-03 09:14] VITALS: BP 122/57
[2021-12-03 16:13] VITALS: BP 103/65
[2021-12-03] MEDS: HALOPERIDOL 10 MG TABLET PO SCH (20:06)
[2021-12-04 07:18] LABS: BASOPHILS % (AUTO) 0.9 % (0.0-2.0); EOSINOPHILS % (AUTO) 2.2 % (1.0-6.0); HEMATOCRIT 43.6 % (41-53); HEMOGLOBIN 14.8 g/dL (13.5-17.5); LYMPHOCYTES # (AUTO) 1.3 K/uL (1.0-4.8); LYMPHOCYTES % (AUTO) 29.5 % (22.0-44.0); MEAN CORPUSCULAR HEMOGLOBIN 26.9 pg (26.0-34.0); MEAN CORPUSCULAR HGB CONC 33.9 G/dL (31.0-37.0); MEAN CORPUSCULAR VOLUME 79 fL (80-100); MONOCYTES # (AUTO) 0.5 K/uL (0.1-1.0); MONOCYTES % (AUTO) 10.5 % (2.0-9.0); NEUTROPHILS # (AUTO) 2.5 K/uL (1.8-7.7); NEUTROPHILS % (AUTO) 56.9 % (40.0-70.0); PLATELET COUNT (AUTO) 249 K/uL (150-450); RED CELL DISTRIBUTION WIDTH 20.3 % (11.5-14.5)
[2021-12-04 08:00] VITALS: BP 111/93
[2021-12-04] MEDS: CloZAPine 100 MG TABLET PO SCH ×2 (10:46→20:02)
[2021-12-04 17:49] VITALS: BP 131/74
[2021-12-04] MEDS: HALOPERIDOL 10 MG TABLET PO SCH (20:02)
[2021-12-05] MEDS: CloZAPine 100 MG TABLET PO SCH ×2 (08:24→20:49)
[2021-12-05 15:14] LABS: COVID AG,FIA SOURCE NASOPHARYNGEAL
[2021-12-05 16:08] VITALS: BP 123/78
[2021-12-05] MEDS: HALOPERIDOL 10 MG TABLET PO SCH (20:49)
[2021-12-06] MEDS: CloZAPine 100 MG TABLET PO SCH ×2 (08:00→20:47)
[2021-12-06 08:31] VITALS: BP 140/84
[2021-12-06 16:20] VITALS: BP 114/56
[2021-12-06 16:21] VITALS: BP 114/56
[2021-12-06] MEDS: HALOPERIDOL 10 MG TABLET PO SCH (20:47)
[2021-12-07] MEDS: CloZAPine 100 MG TABLET PO SCH ×2 (08:15→20:09)
[2021-12-07 09:50] VITALS: BP 125/80
[2021-12-07 16:48] VITALS: BP 120/81
[2021-12-07] MEDS: HALOPERIDOL 10 MG TABLET PO SCH (20:09)
[2021-12-08] MEDS: CloZAPine 100 MG TABLET PO SCH ×2 (09:22→20:07)
[2021-12-08 09:57] VITALS: BP 136/87
[2021-12-08 16:58] VITALS: BP 124/75
[2021-12-08] MEDS: HALOPERIDOL 10 MG TABLET PO SCH (20:06)
[2021-12-09 08:02] VITALS: BP 124/80
[2021-12-09] MEDS: CloZAPine 100 MG TABLET PO SCH ×2 (08:25→20:15)
[2021-12-09 16:53] VITALS: BP 126/81
[2021-12-09] MEDS: HALOPERIDOL 10 MG TABLET PO SCH (20:15)
[2021-12-10 08:10] VITALS: BP 145/80
[2021-12-10] MEDS: CloZAPine 100 MG TABLET PO SCH ×2 (08:21→20:39)
[2021-12-10 16:00] VITALS: BP 134/78
[2021-12-10] MEDS: HALOPERIDOL 5 MG TABLET PO PRN (16:30)
[2021-12-10] MEDS: HALOPERIDOL 10 MG TABLET PO SCH (20:39)
[2021-12-11 07:17] LABS: EOSINOPHILS % (AUTO) 2.9 % (1.0-6.0); HEMATOCRIT 43.2 % (41-53); HEMOGLOBIN 14.7 g/dL (13.5-17.5); LYMPHOCYTES # (AUTO) 1.3 K/uL (1.0-4.8); LYMPHOCYTES % (AUTO) 30.3 % (22.0-44.0); MEAN CORPUSCULAR HGB CONC 33.9 G/dL (31.0-37.0); MEAN CORPUSCULAR VOLUME 80 fL (80-100); MONOCYTES # (AUTO) 0.6 K/uL (0.1-1.0); MONOCYTES % (AUTO) 14.1 % (2.0-9.0); NEUTROPHILS # (AUTO) 2.3 K/uL (1.8-7.7); NEUTROPHILS % (AUTO) 51.7 % (40.0-70.0); PLATELET COUNT (AUTO) 250 K/uL (150-450); RED BLOOD CELL COUNT(AUTO) 5.43 MIL/uL (4.50-5.90); RED CELL DISTRIBUTION WIDTH 20.1 % (11.5-14.5)
[2021-12-11 08:00] VITALS: BP 127/83
[2021-12-11] MEDS: CloZAPine 100 MG TABLET PO SCH ×2 (08:11→20:19)
[2021-12-11 17:32] VITALS: BP 153/57
[2021-12-11] MEDS: HALOPERIDOL 10 MG TABLET PO SCH (20:18)
[2021-12-12 08:00] VITALS: BP 143/99
[2021-12-12] MEDS: CloZAPine 100 MG TABLET PO SCH ×2 (08:04→20:39)
[2021-12-12 12:04] LABS: COVID AG,FIA SOURCE NASOPHARYNGEAL
[2021-12-12 16:38] VITALS: BP 120/75
[2021-12-12] MEDS: HALOPERIDOL 10 MG TABLET PO SCH (20:39)
[2021-12-13 08:00] VITALS: BP 135/73
[2021-12-13] MEDS: CloZAPine 100 MG TABLET PO SCH ×2 (08:20→20:33)
[2021-12-13] MEDS ORDERED: INFLUENZA VIRUS VACCINE QVS 2021-22 (6MO+)/PF 60 MCG/0.5 ML SYRINGE IM. ONE (12:00)
[2021-12-13] MEDS ORDERED: PNEUMOCOCCAL VACCINE POLYVALENT 0.5 ML VIAL [PPSV23] IM. ONE (12:00)
[2021-12-13 16:51] VITALS: BP 101/64
[2021-12-13] MEDS: HALOPERIDOL 10 MG TABLET PO SCH (20:33)
[2021-12-14] MEDS: CloZAPine 100 MG TABLET PO SCH ×2 (08:09→20:17)
[2021-12-14 16:00] VITALS: BP 126/82
[2021-12-14] MEDS: HALOPERIDOL 10 MG TABLET PO SCH (20:16)
[2021-12-15 08:32] VITALS: BP 118/79
[2021-12-15] MEDS: CloZAPine 100 MG TABLET PO SCH ×2 (08:32→20:52)
[2021-12-15 16:13] VITALS: BP 118/66
[2021-12-15] MEDS: HALOPERIDOL 10 MG TABLET PO SCH (20:52)
[2021-12-16 08:00] VITALS: BP 121/81
[2021-12-16] MEDS: CloZAPine 100 MG TABLET PO SCH ×2 (08:29→20:37)
[2021-12-16 16:00] VITALS: BP 109/97
[2021-12-16] MEDS: HALOPERIDOL 10 MG TABLET PO SCH (20:37)
[2021-12-17] MEDS: CloZAPine 100 MG TABLET PO SCH ×2 (08:46→21:19)
[2021-12-17 16:00] VITALS: BP 124/76
[2021-12-17] MEDS: HALOPERIDOL 10 MG TABLET PO SCH (21:20)
[2021-12-18 07:05] LABS: BASOPHILS % (AUTO) 0.4 % (0.0-2.0); EOSINOPHILS % (AUTO) 3.5 % (1.0-6.0); HEMATOCRIT 43.4 % (41-53); HEMOGLOBIN 14.8 g/dL (13.5-17.5); LYMPHOCYTES # (AUTO) 1.5 K/uL (1.0-4.8); LYMPHOCYTES % (AUTO) 31.5 % (22.0-44.0); MEAN CORPUSCULAR HEMOGLOBIN 26.9 pg (26.0-34.0); MEAN CORPUSCULAR VOLUME 79 fL (80-100); MONOCYTES # (AUTO) 0.5 K/uL (0.1-1.0); MONOCYTES % (AUTO) 9.7 % (2.0-9.0); NEUTROPHILS # (AUTO) 2.6 K/uL (1.8-7.7); NEUTROPHILS % (AUTO) 54.9 % (40.0-70.0); PLATELET COUNT (AUTO) 273 K/uL (150-450); RED BLOOD CELL COUNT(AUTO) 5.49 MIL/uL (4.50-5.90); RED CELL DISTRIBUTION WIDTH 19.7 % (11.5-14.5)
[2021-12-18] MEDS: CloZAPine 100 MG TABLET PO SCH ×2 (09:58→20:14)
[2021-12-18 10:09] VITALS: BP 128/75
[2021-12-18 17:14] VITALS: BP 126/77
[2021-12-18] MEDS: HALOPERIDOL 10 MG TABLET PO SCH (20:14)
[2021-12-19 08:00] VITALS: BP 125/75
[2021-12-19] MEDS: CloZAPine 100 MG TABLET PO SCH ×2 (09:00→20:47)
[2021-12-19 15:10] LABS: COVID AG,FIA SOURCE NASAL SWAB
[2021-12-19] MEDS: HALOPERIDOL 5 MG TABLET PO PRN (16:45)
[2021-12-19 16:54] VITALS: BP 100/68
[2021-12-19] MEDS: HALOPERIDOL 10 MG TABLET PO SCH (20:48)
[2021-12-20 08:00] VITALS: BP 116/73
[2021-12-20] MEDS: CloZAPine 100 MG TABLET PO SCH ×2 (08:27→20:41)
[2021-12-20 16:15] VITALS: BP 120/75
[2021-12-20] MEDS: HALOPERIDOL 10 MG TABLET PO SCH (20:40)
[2021-12-21] MEDS: CloZAPine 100 MG TABLET PO SCH ×2 (08:31→20:32)
[2021-12-21 10:51] VITALS: BP 155/68
[2021-12-21 18:23] VITALS: BP 117/65
[2021-12-21] MEDS: HALOPERIDOL 10 MG TABLET PO SCH (20:33)
[2021-12-22] MEDS: CloZAPine 100 MG TABLET PO SCH ×2 (08:01→20:18)
[2021-12-22 09:41] VITALS: BP 143/91
[2021-12-22 16:32] VITALS: BP 128/83
[2021-12-22] MEDS: HALOPERIDOL 10 MG TABLET PO SCH (20:18)
[2021-12-23 08:05] VITALS: BP 127/83
[2021-12-23] MEDS: CloZAPine 100 MG TABLET PO SCH ×2 (09:08→20:41)
[2021-12-23 16:45] VITALS: BP 116/63
[2021-12-23] MEDS: HALOPERIDOL 10 MG TABLET PO SCH (20:41)
[2021-12-24 08:00] VITALS: BP 149/78
[2021-12-24] MEDS: CloZAPine 100 MG TABLET PO SCH ×2 (08:13→20:39)
[2021-12-24 16:38] VITALS: BP 110/70
[2021-12-24] MEDS: HALOPERIDOL 10 MG TABLET PO SCH (20:38)
[2021-12-25 06:10] LABS: BASOPHILS % (AUTO) 0.6 % (0.0-2.0); EOSINOPHILS % (AUTO) 2.6 % (1.0-6.0); HEMATOCRIT 41.6 % (41-53); HEMOGLOBIN 14.2 g/dL (13.5-17.5); LYMPHOCYTES # (AUTO) 1.5 K/uL (1.0-4.8); LYMPHOCYTES % (AUTO) 17.5 % (22.0-44.0); MEAN CORPUSCULAR HEMOGLOBIN 27.1 pg (26.0-34.0); MEAN CORPUSCULAR HGB CONC 34.1 G/dL (31.0-37.0); MEAN CORPUSCULAR VOLUME 80 fL (80-100); MONOCYTES # (AUTO) 0.9 K/uL (0.1-1.0); MONOCYTES % (AUTO) 10.9 % (2.0-9.0); NEUTROPHILS # (AUTO) 5.8 K/uL (1.8-7.7); NEUTROPHILS % (AUTO) 68.4 % (40.0-70.0); PLATELET COUNT (AUTO) 301 K/uL (150-450); RED BLOOD CELL COUNT(AUTO) 5.24 MIL/uL (4.50-5.90); RED CELL DISTRIBUTION WIDTH 19.4 % (11.5-14.5)
[2021-12-25] MEDS: CloZAPine 100 MG TABLET PO SCH ×2 (08:34→20:29)
[2021-12-25 09:16] VITALS: BP 126/75
[2021-12-25 09:56] LABS: COVID AG,FIA SOURCE NASAL SWAB
[2021-12-25 16:00] VITALS: BP 122/75
[2021-12-25 16:42] VITALS: BP 126/67
[2021-12-25] MEDS: HALOPERIDOL 10 MG TABLET PO SCH (20:28)
[2021-12-26 08:00] VITALS: BP 140/86
[2021-12-26] MEDS: CloZAPine 100 MG TABLET PO SCH ×2 (08:07→20:34)
[2021-12-26 16:08] VITALS: BP 100/53
[2021-12-26] MEDS: HALOPERIDOL 10 MG TABLET PO SCH (20:34)
[2021-12-27 08:00] VITALS: BP 142/76
[2021-12-27] MEDS: CloZAPine 100 MG TABLET PO SCH ×2 (08:24→20:03)
[2021-12-27 16:00] VITALS: BP 124/76
[2021-12-27] MEDS: HALOPERIDOL 10 MG TABLET PO SCH (20:03)
[2021-12-28] MEDS: CloZAPine 100 MG TABLET PO SCH ×2 (08:07→20:09)
[2021-12-28 08:58] VITALS: BP 127/73
[2021-12-28 16:10] VITALS: BP 99/71
[2021-12-28] MEDS: HALOPERIDOL 10 MG TABLET PO SCH (20:08)
[2021-12-29 08:00] VITALS: BP 137/102
[2021-12-29] MEDS: CloZAPine 100 MG TABLET PO SCH ×2 (09:02→20:18)
[2021-12-29 16:56] VITALS: BP 121/79
[2021-12-29] MEDS: HALOPERIDOL 10 MG TABLET PO SCH (20:17)
[2021-12-30 08:32] VITALS: BP 113/84
[2021-12-30] MEDS: CloZAPine 100 MG TABLET PO SCH ×2 (08:38→20:37)
[2021-12-30 16:40] VITALS: BP 99/70
[2021-12-30] MEDS: HALOPERIDOL 10 MG TABLET PO SCH (20:37)
[2021-12-31 07:42] LABS: COVID AG,FIA SOURCE NASAL SWAB
[2021-12-31 08:04] VITALS: BP 122/82
[2021-12-31] MEDS: CloZAPine 100 MG TABLET PO SCH ×2 (11:04→20:40)
[2021-12-31 16:16] VITALS: BP 104/69
[2021-12-31] MEDS: HALOPERIDOL 10 MG TABLET PO SCH (20:40)
[2022-01-01 07:11] LABS: BASOPHILS % (AUTO) 0.4 % (0.0-2.0); HEMATOCRIT 44.3 % (41-53); HEMOGLOBIN 14.8 g/dL (13.5-17.5); LYMPHOCYTES # (AUTO) 1.3 K/uL (1.0-4.8); LYMPHOCYTES % (AUTO) 15.7 % (22.0-44.0); MEAN CORPUSCULAR HEMOGLOBIN 27.1 pg (26.0-34.0); MEAN CORPUSCULAR HGB CONC 33.5 G/dL (31.0-37.0); MEAN CORPUSCULAR VOLUME 81 fL (80-100); MONOCYTES # (AUTO) 0.8 K/uL (0.1-1.0); MONOCYTES % (AUTO) 9.7 % (2.0-9.0); NEUTROPHILS # (AUTO) 6.1 K/uL (1.8-7.7); NEUTROPHILS % (AUTO) 72.2 % (40.0-70.0); PLATELET COUNT (AUTO) 293 K/uL (150-450); RED BLOOD CELL COUNT(AUTO) 5.48 MIL/uL (4.50-5.90); RED CELL DISTRIBUTION WIDTH 18.7 % (11.5-14.5)
[2022-01-01] MEDS: CloZAPine 100 MG TABLET PO SCH (08:53)
[2022-01-01 09:12] VITALS: BP 128/88
[2022-01-01] MEDS ORDERED: HALO10 PO (09:45)
[2022-01-01] MEDS ORDERED: CLOZ100T32 PO ×2 (09:45)
== END 2022-01-01 12:05 | DRG 750 ==
LOC: EMS 14:59 → 3EI 11-09 10:30
PROVIDERS: ADMIT Psychiatry & Neurology Psychiatry; ATTEND Psychiatry & Neurology Psychiatry
DX: F20.9 Schizophrenia, unspecified (principal); Z59.02 Unsheltered homelessness; F19.10 Other psychoactive substance abuse, uncomplicated; F94.0 Selective mutism; Z20.822 Contact with and (suspected) exposure to COVID-19; F41.9 Anxiety disorder, unspecified; K59.00 Constipation, unspecified; G47.00 Insomnia, unspecified; Z91.14 Patient's other noncompliance with medication regimen; Z72.0 Tobacco use; Z71.6 Tobacco abuse counseling
CPT/HCPCS: 80053; 81003; 85025; 99285; G0480